=== PATIENT | male | born 1965 | race Caucasian/White ===

== ENCOUNTER → 2017-07-17 | Outpatient (CLI) | payer MEDICAID ==
[~2017-07-17] MED LIST: NOMEDS XX; ROBAXIN-750750 MG PO; TORADOL10 M2 PO
--- NOTE | 2017-07-17 11:58 | RADIOLOGY REPORT PS360 ---
CERVICAL SPINE-2 TO 3 VIEWS HISTORY: Left arm tingling ARM [place] ORDERING PHYSICIAN: NAWAF RANGEL PATIENT AGE: 52 years COMPARISON: None FINDINGS: Normal alignment. No fracture or dislocation. There is mild degenerative disc disease at C3-C4 and C5-C6 and C6-C7. Anterior osteophyte C5-C6. No evidence of cervical rib. No destructive process. IMPRESSION: Mild cervical spondylosis with degenerative disc disease and osteophyte formation
== END ==
LOC: RAD 07:59
DX: R20.2 Paresthesia of skin (principal)

== ENCOUNTER 2017-08-04 16:02 | Emergency (ER) | payer OTHER ==
[~2017-08-04] VITALS: Ht 180.3 cm; Wt 98.9 kg
[2017-08-04] MEDS ORDERED: NAPROXEN500 M1 PO (16:20)
--- NOTE | 2017-08-04 16:39 | Urgent Treatment Center Report ---
History of Present Issue Date/Time Seen by Provider 08/04/17 7275 Visit Reason Pt arrived:Walked Presenting Problem:PT STATES HE STARTED MONITORING HIS BP ON SATURDAY PER HIS PCP BECAUSE OF AN INCREASE IN HIS SYSTOLIC BP PT TOOK IT AT HOME TO DAY AND IT WAS 180/100. LEFT ARM 170/100 IN [facility]. Location if Accident: Onset of symptoms date/time:/ or onset unknown for:MEDICAL HX UNKNOWN Have you (or family members/close friends) recently traveled outside the [place]? N If Yes, where/when: Have you had exposure to infectious disease within the past month? TB? Other? Specify: Patient state that he was told to start monitoring his blood pressure at home State that he checked it earlier with a new machine and it was high 180/100 so he came in to the [facility] to have us check his blood pressure and see what we got State that he is suppose to monitor his blood pressure over the weekend and then report it to his doctor State that when he saw those number he was scared and so he came straight in ALLERGIES Coded Allergies: MDX - PCN (penicillin) (PCN (PENICILLIN)) (Intermediate, 06/05/15) Home Medications Reported Medications Naproxen 500 MG PO BID PRN PAIN #40 History Medical History General CAD? No Angina: No [place]: No Hypertension? Yes Hyperlipidemia? No CHF? No DVT? No PE? No COPD? No Asthma? No Anemia? No GERD? No Gastric ulcers? No GI Bleed? No Hernia? No Thyroid Problems? No Hypothyroidism? No CVA? No Seizures? No Diabetes? No Insulin Dependent: No Insulin Pump: No Home FSBS? No Renal Insuffiency? No UTI? No Stones? No BPH? No GB Disease: No Nephritic Syndrome? No Asplenia? No Hepatitis? No Sickle Cell Disease? No Arthritis? No Migraines? No Cataracts? No Glaucoma? No MRSA? No HIV? No TB? No Anxiety? No Depression? No Cancer? No Site: N More? No Immunization HX DT/Tetanus 5-10 Years Ago Surgical Hx Previous Surgery?N Social History Smoking Hx Smoker: Never Smoker Tobacco: No Alcohol Alcohol: No Review of Systems All Other Systems Reviewed and Negative Comment Patient suppose to be keeping a blood pressure log for family doctor Just bought new machine for home took blood pressure prior to arrival and it was high, he got worried so he came in to get checked Initial reading in left arm elevated however after patient relaxed blood pressure lowered Physical Exam Vital Signs Vital Signs Date Time Temp Pulse Resp B/P Pulse O2 O2 Flow FiO2 Ox Delivery Rate 08/04 1616 97.9 64 20 152/83 97 General Appearance normal appearance, WD/WN, no apparent distress Respiratory Status Yes: trachea midline, chest symmetrical, non tender chest. No: respiratory distress. Lung Sounds bilateral: normal breath sounds, lungs clear. Cardiovascular normal exam, regular rate/rhythm, no peripheral edema Neurologic alert, normal exam, oriented x 3 Medical Decision Making LABS/Meds/Orders Pt receiving controlled substance in ED? No Progress [facility] Progress Notes Comment Patient blood pressure checked multiple times during stay in [facility] Patient educated that when he takes his blood pressure to make sure he is sitting, legs are not crossed and on the same arm if possible every time for the log. Also informed not to watch the machine as sometimes this can cause anxiety and raise your blood pressure Patient also informed that if he checks his blood pressure and gets a high reading wait just a few minutes calm down and recheck the blood pressure, Blood pressure recheck in left arm now 144/88 Departure Departure Time of Disposition 1654 Disposition DC Home or Self Care(routine) Clinical Impression Primary Impression: Blood pressure check Condition STABLE Referrals NAWAF RANGEL (Family): [facility] Patient Instructions DI for High Blood Pressure Additional Instructions Check blood pressure while sitting down, make sure to no cross your legs and sit there just a moment prior to checking your blood pressure and record as instructed by your family doctor Follow up with family doctor for further treatment Return if needed Discharge Counseling Counseled pt/family regarding diagnosis, home care, follow up needs at 1706
--- NOTE | 2017-08-04 16:39 | Urgent Treatment Center Report ---
History of Present Issue Date/Time Seen by Provider 08/04/17 4655 Visit Reason Pt arrived:Walked Presenting Problem:PT STATES HE STARTED MONITORING HIS BP ON SATURDAY PER HIS PCP BECAUSE OF AN INCREASE IN HIS SYSTOLIC BP PT TOOK IT AT HOME TO DAY AND IT WAS 180/100. LEFT ARM 170/100 IN [facility]. Location if Accident: Onset of symptoms date/time:/ or onset unknown for:MEDICAL HX UNKNOWN Have you (or family members/close friends) recently traveled outside the [place]? N If Yes, where/when: Have you had exposure to infectious disease within the past month? TB? Other? Specify: Patient state that he was told to start monitoring his blood pressure at home State that he checked it earlier with a new machine and it was high 180/100 so he came in to the [facility] to have us check his blood pressure and see what we got State that he is suppose to monitor his blood pressure over the weekend and then report it to his doctor State that when he saw those number he was scared and so he came straight in ALLERGIES Coded Allergies: MDX - PCN (penicillin) (PCN (PENICILLIN)) (Intermediate, 06/05/15) Home Medications Reported Medications Naproxen 500 MG PO BID PRN PAIN #40 History Medical History General CAD? No Angina: No [place]: No Hypertension? Yes Hyperlipidemia? No CHF? No DVT? No PE? No COPD? No Asthma? No Anemia? No GERD? No Gastric ulcers? No GI Bleed? No Hernia? No Thyroid Problems? No Hypothyroidism? No CVA? No Seizures? No Diabetes? No Insulin Dependent: No Insulin Pump: No Home FSBS? No Renal Insuffiency? No UTI? No Stones? No BPH? No GB Disease: No Nephritic Syndrome? No Asplenia? No Hepatitis? No Sickle Cell Disease? No Arthritis? No Migraines? No Cataracts? No Glaucoma? No MRSA? No HIV? No TB? No Anxiety? No Depression? No Cancer? No Site: N More? No Immunization HX DT/Tetanus 5-10 Years Ago Surgical Hx Previous Surgery?N Social History Smoking Hx Smoker: Never Smoker Tobacco: No Alcohol Alcohol: No Review of Systems All Other Systems Reviewed and Negative Comment Patient suppose to be keeping a blood pressure log for family doctor Just bought new machine for home took blood pressure prior to arrival and it was high, he got worried so he came in to get checked Initial reading in left arm elevated however after patient relaxed blood pressure lowered Physical Exam Vital Signs Vital Signs Date Time Temp Pulse Resp B/P Pulse O2 O2 Flow FiO2 Ox Delivery Rate 08/04 1616 97.9 64 20 152/83 97 General Appearance normal appearance, WD/WN, no apparent distress Respiratory Status Yes: trachea midline, chest symmetrical, non tender chest. No: respiratory distress. Lung Sounds bilateral: normal breath sounds, lungs clear. Cardiovascular normal exam, regular rate/rhythm, no peripheral edema Neurologic alert, normal exam, oriented x 3 Medical Decision Making LABS/Meds/Orders Pt receiving controlled substance in ED? No Progress [facility] Progress Notes Comment Patient blood pressure checked multiple times during stay in [facility] Patient educated that when he takes his blood pressure to make sure he is sitting, legs are not crossed and on the same arm if possible every time for the log. Also informed not to watch the machine as sometimes this can cause anxiety and raise your blood pressure Patient also informed that if he checks his blood pressure and gets a high reading wait just a few minutes calm down and recheck the blood pressure, Blood pressure recheck in left arm now 144/88 Departure Departure Time of Disposition 1654 Disposition DC Home or Self Care(routine) Clinical Impression Primary Impression: Blood pressure check Condition STABLE Referrals NAWAF RANGEL (Family): [facility] Patient Instructions DI for High Blood Pressure Additional Instructions Check blood pressure while sitting down, make sure to no cross your legs and sit there just a moment prior to checking your blood pressure and record as instructed by your family doctor Follow up with family doctor for further treatment Return if needed Discharge Counseling Counseled pt/family regarding diagnosis, home care, follow up needs at 1706
[2017-08-04 17:08] VITALS: BP 152/83
== END 2017-08-04 17:11 | disposition home or self-care (01) ==
LOC: UTC 16:02
DX: Z01.30 Encounter for examination of blood pressure without abnormal findings (principal); I10 Essential (primary) hypertension; Z79.899 Other long term (current) drug therapy; Z88.0 Allergy status to penicillin